=== PATIENT | male | born 1970 | race American Indian/Alaskan Native ===

== ENCOUNTER 2021-05-25 09:35 | Emergency (ER) | payer BC ==
--- NOTE | 2021-05-25 09:45 | EDM.PDOC ---
ED HPI GENERAL MEDICAL PROBLEM - General Chief Complaint: Eye Problems Stated Complaint: L EYE PAIN Time Seen by Provider: 05/25/21 09:45 Source of Information: Reports: Patient History Limitations: Reports: No Limitations - History of Present Illness INITIAL COMMENTS - FREE TEXT/NARRATIVE: Neel, 50-year-old male, awoke this morning with irritation to the left eye crusting and mattery. 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 He was always using his protective equipment goggles when doing any grinding. He denies noticing anything as far as accidental foreign body exposure. He does acknowledge doing some grinding. No other systems or complaints are acknowledged. Tetanus status was addressed 3 years ago during a knee surgery. Onset: Today Left Eye Pain Score (Numeric/FACES): 5 - Related Data Allergies Allergy/AdvReac Type Severity Reaction Status Date / Time No Known Allergies Allergy Verified 05/25/21 10:42 Home Meds: Home Meds . [No Known Home Meds] 05/25/21 [History] Past Medical History - Past Health History Medical/Surgical History: Denies Medical/Surgical History - Past Surgical History Musculoskeletal Surgical History: Reports: Other (See Below) (Left knee surgery 2018) Social & Family History - Family History Family Medical History: No Pertinent Family History ED ROS GENERAL - Review of Systems Review Of Systems: Comprehensive ROS is negative, except as noted in HPI. ED EXAM, GENERAL - Physical Exam Exam: See Below Free Text/Narrative:: Alert, oriented, with mild irritation type distress to the left eye. HEENT is otherwise benign. PERRLA no icterus mild injection to the left eye. Right eye is benign in motion extraocular motion intact and no irritation noted. Left eye shows a foreign body at the 8 o'clock position of the iris with overall generalized erythema/injection. There is some debris to the lid/lashes as well as in the puncta. There is no lymphadenopathy no respiratory distress no audible wheezes are noted. ED GENERAL MEDICAL PROCEDURES - Additional/Other Procedure(s) Other (Free Text) Procedure(s): Foreign body noted to the left eye at 8 o'clock position. After gross visualization with ophthalmoscope I advised Neel of the foreign body and process for evaluation and removal. He is in agreement for this. Tetracaine was instilled into the left eye and he was allowed to dab the residual runoff with tissue. After 1 minute an additional drop was placed at which time a moistened swab in sterile fashion was used unable to remove the foreign body. At that time 1 additional drop of tetracaine was provided and an 18-gauge needle was used to free the debris from the tissue. I was able to retrieve this with a moistened swab again with no difficulty. There was a rust ring present underlying the area. Explained to him the process and with a bur remover was able to successfully remove the rust ring and debris. Neel tolerated the procedure well. After this fluorescein stain was instilled to which the only uptake was at the site of the foreign body. Stain was rinsed free and gentamicin ophthalmic solution was placed onto the eye. Course - Vital Signs Last Recorded V/S: Last Vital Signs Temp 97.2 F 05/25/21 09:40 Pulse 73 05/25/21 09:40 Resp 20 05/25/21 09:40 BP 144/100 H 05/25/21 09:40 Pulse Ox 96 05/25/21 09:40 - Orders/Labs/Meds Meds: Medications Discontinued Medications Generic Name Dose Route Start Last Admin Trade Name Markq PRN Reason Stop Dose Admin Gentamicin Sulfate 0.01 ml 05/25/21 14:00 05/25/21 10:10 Gentamicin 0.3% Ophth Soln 5 Ml Bottle EYELF 1 drop TID SANJAY Administration Gentamicin Sulfate Confirm 05/25/21 09:58 05/25/21 11:06 Gentamicin 0.3% Ophth Soln 5 Ml Bottle Administered 05/25/21 09:59 Not Given Dose 5 ml .ROUTE .STK-MED ONE Tetracaine HCl 1 ml 05/25/21 09:50 05/25/21 10:00 Tetracaine Hcl/Pf 0.5% 4 Ml Bottle EYELF 05/25/21 09:51 1 ml ASDIRECTED ONE Administration Departure - Departure Time of Disposition: :21 Disposition: Home, Self-Care 01 Condition: Good Clinical Impression: Corneal rust ring of left eye Foreign body of eye, external, left Qualifiers: Encounter type: initial encounter Qualified Code(s): T15.92XA - Foreign body on external eye, part unspecified, left eye, initial encounter - Discharge Information *PRESCRIPTION DRUG MONITORING PROGRAM REVIEWED*: Not Applicable *COPY OF PRESCRIPTION DRUG MONITORING REPORT IN PATIENT DENG: Not Applicable Instructions: Eye Foreign Body, [id number] Referrals: Jennifer Jarvis MD [Primary Care Provider] - Forms: ED Department Discharge Additional Instructions: Rust ring was removed as well as the likely metal foreign body. Use the antibiotic drops 4 times today total. Starting tomorrow morning 3 times a day for the next 5 to 7 days. This should not require follow-up if you have no issues developing or concerns. If you do you should be seen at an eye clinic by twitchell operator or registered medical transcriptionist. You may take ibuprofen or Tylenol if you have any discomfort. Take any of your medications as directed. Avoid dirty environment and or heavy dust for the next 1 hour until the numbing effect of the eyedrop wears off. If you were to get something in your left eye in the next hour you may rub and cause more damage as you do not feel the issue of developing. Follow-up as needed. Sepsis Event Note (ED) - Focused Exam Vital Signs: Vital Signs Temp Pulse Resp BP Pulse Ox 05/25/21 09:40 97.2 F 73 20 144/100 H 96 - Problem List & Annotations (1) Foreign body of eye, external, left SNOMED Code(s): 59158000775698942 Code(s): T15.92XA - FOREIGN BODY ON EXTERNAL EYE, PART UNSP, LEFT EYE, INIT Status: Acute Qualifiers: Encounter type: initial encounter Qualified Code(s): T15.92XA - Foreign body on external eye, part unspecified, left eye, initial encounter (2) Corneal rust ring of left eye SNOMED Code(s): 612286168 Code(s): H18.892 - OTHER SPECIFIED DISORDERS OF CORNEA, LEFT EYE Status: Acute Priority: High - Problem List Review Problem List Initiated/Reviewed/Updated: Yes - Assessment/Plan Plan: Rust ring was removed as well as the likely metal foreign body. Use the antibiotic drops 4 times today total. Starting tomorrow morning 3 times a day for the next 5 to 7 days. This should not require follow-up if you have no issues developing or concerns. If you do you should be seen at an eye clinic by twitchell operator or registered medical transcriptionist. You may take ibuprofen or Tylenol if you have any discomfort. Take any of your medications as directed. Avoid dirty environment and or heavy dust for the next 1 hour until the numbing effect of the eyedrop wears off. If you were to get something in your left eye in the next hour you may rub and cause more damage as you do not feel the issue of developing. Follow-up as needed.
[2021-05-25] MEDS ORDERED: Tetracaine HCl/PF 0.5% 4 ML Bottle EYELF ONE (09:50)
[2021-05-25] MEDS ORDERED: Gentamicin 0.3% Ophth Soln 5 ML Bottle ONE (09:58)
[2021-05-25] MEDS ORDERED: Gentamicin 0.3% Ophth Soln 5 ML Bottle EYELF SCH (14:00)
== END 2021-05-25 10:30 | disposition home or self-care (01) ==
LOC: KA.ED 09:35
DX: T15.02XA Foreign body in cornea, left eye, initial encounter (principal)
CPT/HCPCS: 65220; 99282; A9270; 99283